=== PATIENT | female | born 1995 ===

== ENCOUNTER 2018-01-11 23:53 | Emergency (ER) | payer OTHER ==
[2018-01-12] MEDS ORDERED: Phenazopyridine 95 MG Tab PO ONE (02:00)
[2018-01-12] MEDS ORDERED: Ciprofloxacin 500 MG Tab PO ONE (02:00)
--- NOTE | 2018-01-12 02:06 | EDM.PDOC ---
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, took a nap on getting home, on awakening she had urgency, frequency and dysuria back always used Bactrim in past, 2 previous UCs showed mixed west only with urination Pain Score (Numeric/FACES): 10 - Related Data Allergies Allergy/AdvReac Type Severity Reaction Status Date / Time No Known Allergies Allergy Verified 01/12/18 00:06 Home Meds: Home Meds Ciprofloxacin [Ciprofloxacin HCl] 250 mg PO BID #6 tab 01/12/18 [Rx] Phenazopyridine HCl [Pyridium] 100 mg PO TID #6 tablet 01/12/18 [Rx] Past Medical History - Past Health History Medical/Surgical History: Denies Medical/Surgical History Social & Family History - Family History Family Medical History: Noncontributory - Tobacco Use Smoking Status *Q: Never Smoker - Caffeine Use Caffeine Use: Reports: Coffee - Recreational Drug Use Recreational Drug Use: No ED ROS GENERAL - Review of Systems Review Of Systems: See Below Constitutional: Reports: No Symptoms HEENT: Reports: No Symptoms Respiratory: Reports: No Symptoms Cardiovascular: Reports: No Symptoms Endocrine: Reports: No Symptoms GI/Abdominal: Reports: No Symptoms : Reports: Dysuria, Frequency, Urgency Musculoskeletal: Reports: No Symptoms Skin: Reports: No Symptoms Neurological: Reports: No Symptoms Psychiatric: Reports: No Symptoms Hematologic/Lymphatic: Reports: No Symptoms Immunologic: Reports: No Symptoms ED EXAM, GI/ABD - Physical Exam Exam: See Below Exam Limited By: No Limitations General Appearance: Alert, WD/WN, No Apparent Distress GI/Abdominal Exam: Soft, No Distention, No Mass, Other (mild tender suprapubic, NT at flanks) Back Exam: Normal Inspection, Full Range of Motion. No: CVA Tenderness (R), CVA Tenderness (L) Course - Vital Signs Last Recorded V/S: Last Vital Signs Temp 36.9 C 01/11/18 23:53 Pulse 91 01/11/18 23:53 Resp 18 01/11/18 23:53 BP 121/80 01/11/18 23:53 Pulse Ox 100 01/11/18 23:53 - Orders/Labs/Meds Orders: Active Orders 24 hr Category Date Time Status CULTURE URINE [RM] Stat Lab 01/12/18 00:58 Ordered CULTURE URINE [RM] Stat Lab 01/12/18 01:42 Ordered Ciprofloxacin [Ciprofloxacin HCl] Med 01/12/18 02:00 Once 500 mg PO ONETIME ONE Phenazopyridine [Urinary Pain Relief] Med 01/12/18 02:00 Once 95 mg PO NOW ONE Labs: Laboratory Tests 01/12/18 Range/Units 00:20 Urine Color Yellow (YELLOW) Urine Appearance Cloudy (CLEAR) Urine pH 8.0 H (5.0-6.5) Ur Specific [place] 1.015 (1.010-1.025) Urine Protein 30 H (NEGATIVE) mg/dL Urine Glucose (UA) Normal (NEGATIVE) mg/dL Urine Ketones Negative (NEGATIVE) mg/dL Urine Occult Blood Large H (NEGATIVE) Urine Nitrite Negative (NEGATIVE) Urine Bilirubin Negative (NEGATIVE) Urine Urobilinogen Normal (NEGATIVE) mg/dL Ur Leukocyte Esterase Large H (NEGATIVE) Urine RBC 75-100 H (0) Urine WBC >100 H (0) Ur Squamous Epith Cells Few H (NS,R,O) Urine Bacteria Moderate H (NS) - Re-Assessments/Exams Free Text/Narrative Re-Assessment/Exam: 01/12/18 02:05 u/a shows moderate bacteria, suspect partial resistance to TMP/SMX, will use cipro x 3d for now, will be a candidate for Macrobid in future Departure - Departure Time of Disposition: 02:06 Disposition: Home, Self-Care 01 Condition: Good Clinical Impression: UTI, Urinary tract infectious disease - Discharge Information *PRESCRIPTION DRUG MONITORING PROGRAM REVIEWED*: Not Applicable *COPY OF PRESCRIPTION DRUG MONITORING REPORT IN PATIENT [place]: Not Applicable Prescriptions: Ciprofloxacin [Ciprofloxacin HCl] 250 mg PO BID #6 tab Phenazopyridine HCl [Pyridium] 100 mg PO TID #6 tablet Instructions: Urinary Tract Infection, Adult Referrals: Yumiko Lowe NP [Primary Care Provider] - Additional Instructions: For infection, take ciprofloxacin 250 mg 1 tab 2 times a day for 3 days. For burning, take phenazopyridine 100 mg 1 tab 3 times a day for 2 days. Increase fluids. See your physician in 4 days. Return to ED if you feel worse. Call your Physician or Return to Emergency Department if: * Your condition worsens in any way. * You develop fever greater than 100.4. * You have vomitting that does not stop with medications. * You have pain that is not controlled with medications. - My Orders Last 24 Hours: My Active Orders 01/12/18 00:58 CULTURE URINE [RM] Stat 01/12/18 01:42 CULTURE URINE [RM] Stat 01/12/18 02:00 Ciprofloxacin [Ciprofloxacin HCl] 500 mg PO ONETIME ONE Phenazopyridine [Urinary Pain Relief] 95 mg PO NOW ONE - Assessment/Plan Last 24 Hours: My Active Orders 01/12/18 00:58 CULTURE URINE [RM] Stat 01/12/18 01:42 CULTURE URINE [RM] Stat 01/12/18 02:00 Ciprofloxacin [Ciprofloxacin HCl] 500 mg PO ONETIME ONE Phenazopyridine [Urinary Pain Relief] 95 mg PO NOW ONE
== END 2018-01-12 02:27 | disposition home or self-care (01) ==
LOC: FB.ED 23:53
DX: N39.0 Urinary tract infection, site not specified (principal)
CPT/HCPCS: 81001; 87086; 99283; A9270